=== PATIENT | male | born 1995 | race Caucasian/White ===

== ENCOUNTER 2016-08-03 19:52 | Emergency (ER) | payer OTHER ==
--- NOTE | 2016-08-03 20:36 | EDPHY ---
H & P Stated Complaint: COUGH THROAT PAIN FEVER CHILLS 4 DAYS Source: Patient Exam Limitations: No limitations - Personal History Current Tetanus/Diphtheria Vaccine: Yes Current Tetanus Diphtheria and Acellular Pertussis (TDAP): Yes - Medical/Surgical History Hx Asthma: Yes Hx Chronic Respiratory Disease: No Hx Diabetes: No Hx Cardiac Disease: No Hx Renal Disease: No Hx Cirrhosis: No Hx Alcoholism: No Hx HIV/AIDS: No Hx Splenectomy or Spleen Trauma: No - Social History Smoking Status: Light smoker Time Seen by Provider: 08/03/16 20:14 HPI/ROS: CHIEF COMPLAINT: nasal congestion, sore throat, headache, subjective fevers HISTORY OF PRESENT ILLNESS: 21-year-old male presents emergency department reporting a 5 day history of cold symptoms. Patient reports his symptoms started with a sore throat which has almost resolved, he continues with nasal congestion, pressure in his head behind his nose and eyes, productive cough, subjective fevers and chills. Patient reports body aches. Patient reports he has not taken any medications for this. He denies shortness of breath or chest pain. Patient denies ear pain. Patient reports he gets bad seasonal allergies. Multiple sick contacts at work. Patient denies tobacco use. REVIEW OF SYSTEMS: A comprehensive 10 point review of systems is otherwise negative aside from elements mentioned in the history of present illness. (Paradise Felton) - Physical Exam Exam: General: Alert, nontoxic. ENT: Tympanic membranes clear, external auditory canal, external ear and surrounding soft tissue including over the mastoid unremarkable. Nasopharynx is injected, there is yellow rhinorrhea. Oropharynx with erythema. There is no exudate. No tonsillar hypertrophy. No asymmetry. The uvula is midline. No elevation of tongue. There is no hoarseness. No drooling, patient has good control of their oral secretions. No trismus. No stridor. Mild frontal sinus tenderness to palpation. Cardiac: Regular rate and rhythm. Respiratory: Lungs clear to auscultation bilaterally. Neurological: no meningismus. Skin: No rashes. (Paradise Felton) Constitutional: Initial Vital Signs Temperature (C) 37.6 C 08/03/16 19:53 Heart Rate 89 08/03/16 19:53 Respiratory Rate 18 08/03/16 19:53 Blood Pressure 101/63 08/03/16 19:53 O2 Sat (%) 93 08/03/16 19:53 O2 Delivery Mode Room Air Allergies/Adverse Reactions: No Known Allergies Allergy (Unverified 08/03/16 19:56) Home Medications: Medication Instructions Recorded Amoxicillin 500 mg PO BID 10 Days 08/03/16 Fluticasone Nasal [Flonase Nasal 1 sprays NASAL DAILY #1 mdi 08/03/16 [place] (RX)] Medical Decision Making ED Course/Re-evaluation: 21-year-old nontoxic-appearing male presents with sinusitis symptoms x5 days. Patient has normal room air oxygen saturations, lungs are clear to auscultation , he has been given Tylenol, ibuprofen and Sudafed in the emergency department. I have given a prescription for Flonase and amoxicillin to start taking if his symptoms are not improving in the next 3-4 days. Patient has been given strict return precautions for any new symptoms or concerns. (Paradise Felton) Differential Diagnosis: Diagnosis considered but not limited to sinusitis, influenza, upper respiratory infection, pneumonia ([place] Felton) Other Provider: The patient was evaluated and managed by the Physician Barrelhead Inspector/ Nurse Practitioner. My co-signature indicates that I have reviewed this chart and I agree with the findings and plan of care as documented. I am the secondary supervising physician. (Kimberli Bateman) - Data Points Medications Given: Discontinued Medications Acetaminophen (Tylenol) 650 mg PO EDNOW ONE Stop: 08/03/16 21:02 Last Admin: 08/03/16 21:01 Dose: 650 mg Ibuprofen (Motrin) 600 mg PO EDNOW ONE Stop: 08/03/16 21:02 Last Admin: 08/03/16 21:01 Dose: 600 mg Pseudoephedrine HCl (Sudafed) 30 mg PO EDNOW ONE Stop: 08/03/16 21:02 Last Admin: 08/03/16 21:01 Dose: 30 mg Departure - Departure Disposition: Home, Routine, Self-Care Clinical Impression: Sinusitis Condition: Good Instructions: Sinusitis (ED) Additional Instructions: Take 600 mg of ibuprofen every 8 hours with food for 3-5 days, take 650 mg of Tylenol every 8 hours. You can alternate these every 4 hours. Rest, drink plenty of fluids. Use a saline nasal rinse, humidifier at night, hot steam showers. Use 2 spray of Flonase in each nostril daily for 7 days Take [id number] Sudafed every 6 hours as needed for congestion Take [id number] Mucinex as needed for congestion I thank you likely have a viral sinus infection though I have written you a prescription for amoxicillin. Start taking the amoxicillin only if your symptoms are not improving in the next 3-4 days or if they are worsening. Return to the ED for difficulty breathing, chest pain, other concerns. Referrals: Manda Ramos MD [Medical Doctor] - Follow Up Only If Needed (Primary care doctor on-call) Stand Alone Forms: Work Excuse Prescriptions: Amoxicillin 500 mg PO BID 10 Days Fluticasone Nasal [Flonase Nasal [place] (RX)] 1 sprays NASAL DAILY #1 mdi
[2016-08-03] MEDS ORDERED: PSEUDOEPHEDRINE HCL 30 MG TAB PO ONE (21:01)
[2016-08-03] MEDS ORDERED: ACETAMINOPHEN 325 MG TAB PO ONE (21:01)
[2016-08-03] MEDS ORDERED: IBUPROFEN 600 MG TAB PO ONE (21:01)
[2016-08-03 21:21] VITALS: BP 128/70; PULSE 88; RESP 16; TEMP 99; O2SAT 97
== END 2016-08-03 21:21 | disposition home or self-care (01) ==
DX: J32.9 Chronic sinusitis, unspecified (principal); J45.909 Unspecified asthma, uncomplicated; F17.200 Nicotine dependence, unspecified, uncomplicated